=== PATIENT | female | born 1950 | race Caucasian/White ===

== ENCOUNTER 2018-12-02 13:37 | Emergency (ER) | payer MEDICARE, OTHER ==
[~2018-12-02] VITALS: Ht 157.5 cm; Wt 52.3 kg
[~2018-12-02 13:37] MED LIST: ALPR-384 PO; ASPI-611 PO; CALC-965 PO; CETI10TA14 PO; CHOL100046 PO; DIAZ10TA4 PO; DOCU-273 PO; EST1T PO; FENO145T38 PO; HYDR-4383 PO; LEVO50TA8 PO; MULT-1085 PO; NIFE30TA8 PO; OMEP40CA37 PO; RANI150T8 PO
[2018-12-02 14:12] LABS: BASOPHILS % (AUTO) 0.9 % (0-1); EOSINOPHILS # (AUTO) 0.1 X10'3 (0-0.9); EOSINOPHILS % (AUTO) 1.4 % (0-6); HEMATOCRIT 36.3 % (35.0-45.0); HEMOGLOBIN 12.3 g/dl (12.0-16.0); LYMPHOCYTES # (AUTO) 2.1 X10'3 (1.1-4.8); LYMPHOCYTES % (AUTO) 46.3 % (21-51); MEAN CORPUSCULAR HEMOGLOBIN 31.2 PG (27.0-31.0); MEAN CORPUSCULAR HGB CONC 33.8 g/dL (33.0-36.5); MEAN CORPUSCULAR VOLUME 92.1 FL (78-98); MEAN PLATELET VOLUME 10.1 FL (7.4-10.4); MONOCYTES # (AUTO) 0.4 X10'3 (0-0.9); MONOCYTES % (AUTO) 8.3 % (2-12); NEUTROPHILS % (AUTO) 43.1 % (42-75); PLATELET COUNT 203 X10'3 (140-440); RED BLOOD COUNT 3.95 X10'6 (4.20-5.60); RED CELL DISTRIBUTION WIDTH 13.1 % (11.5-14.5); WHITE BLOOD COUNT 4.6 X10'3 (4.5-11.0)
[2018-12-02 14:28] LABS: ALANINE AMINOTRANSFERASE 27 U/L (12-78); ALBUMIN 3.6 G/DL (3.4-5.0); ALBUMIN/GLOBULIN RATIO 1.1 (1.1-1.5); ALKALINE PHOSPHATASE 28 IU/L (46-116); ANION GAP 8 (8-16); ASPARTATE AMINO TRANSFERASE 36 U/L (10-37); BILIRUBIN,TOTAL 0.4 MG/DL (0.1-1.0); BLOOD UREA NITROGEN 12 MG/DL (7-18); BUN/CREATININE RATIO 12.2 (6.6-38.0); CALCIUM 8.3 MG/DL (8.5-10.1); CHLORIDE 104 MMOL/L (99-107); CREATININE 0.98 MG/DL (0.40-0.90); GLUCOSE 96 MG/DL (70-104); PARTIAL THROMBOPLASTIN TIME 25 SECONDS (22-32); POTASSIUM 3.9 MMOL/L (3.5-5.1); SODIUM 136 MMOL/L (135-145); TOTAL PROTEIN 6.9 G/DL (6.4-8.2); eGFR 57 ML/MIN
[2018-12-02] MEDS ORDERED: normal saline 1000ml 1,000 ML IV ONE (14:50)
[2018-12-02] MEDS ORDERED: pantoprazole 40 MG vial IV ONE (16:15)
[2018-12-02] MEDS ORDERED: ondansetron/PF 4mg/2ml inj IV ONE (16:15)
[2018-12-02] MEDS ORDERED: ESOMEPRAZOLE 40 MG VIAL IV ONE (16:20)
[2018-12-02 16:53] VITALS: BP 117/66
[2018-12-02 16:55] LABS: HEMATOCRIT 34.8 % (35.0-45.0); HEMOGLOBIN 11.8 g/dl (12.0-16.0); MEAN CORPUSCULAR HEMOGLOBIN 30.9 PG (27.0-31.0); MEAN CORPUSCULAR HGB CONC 33.8 g/dL (33.0-36.5); MEAN CORPUSCULAR VOLUME 91.4 FL (78-98); MEAN PLATELET VOLUME 9.7 FL (7.4-10.4); PLATELET COUNT 194 X10'3 (140-440); WHITE BLOOD COUNT 5.4 X10'3 (4.5-11.0)
== END 2018-12-02 17:44 | disposition home or self-care (01) ==
LOC: ER 13:38
DX: R55 Syncope and collapse (principal); I10 Essential (primary) hypertension; K21.9 Gastro-esophageal reflux disease without esophagitis; E03.9 Hypothyroidism, unspecified; Z88.6 Allergy status to analgesic agent; Z79.82 Long term (current) use of aspirin
CPT/HCPCS: 36415; 71045; 80053; 84484; 85025; 85027; 85610; 85730; 93005; 96361; 96374; 96375; 99284; J2405; J7030

== ENCOUNTER 2018-12-26 11:30 | Emergency (ER) | payer MEDICARE, OTHER ==
[~2018-12-26] VITALS: Ht 157.5 cm; Wt 54.0 kg
[2018-12-26 12:07] LABS: BASOPHILS % (AUTO) 0.4 % (0-1); EOSINOPHILS % (AUTO) 1.1 % (0-6); HEMOGLOBIN 12.6 g/dl (12.0-16.0); LYMPHOCYTES # (AUTO) 1.3 X10'3 (1.1-4.8); LYMPHOCYTES % (AUTO) 30.2 % (21-51); MEAN CORPUSCULAR HEMOGLOBIN 30.9 PG (27.0-31.0); MEAN CORPUSCULAR HGB CONC 33.1 g/dL (33.0-36.5); MEAN CORPUSCULAR VOLUME 93.5 FL (78-98); MEAN PLATELET VOLUME 9.7 FL (7.4-10.4); MONOCYTES # (AUTO) 0.4 X10'3 (0-0.9); NEUTROPHILS # (AUTO) 2.6 X10'3 (1.8-7.7); NEUTROPHILS % (AUTO) 59.3 % (42-75); PLATELET COUNT 201 X10'3 (140-440); RED BLOOD COUNT 4.06 X10'6 (4.20-5.60); RED CELL DISTRIBUTION WIDTH 13.1 % (11.5-14.5); WHITE BLOOD COUNT 4.3 X10'3 (4.5-11.0)
[2018-12-26 12:21] LABS: ALANINE AMINOTRANSFERASE 25 U/L (12-78); ALBUMIN 3.9 G/DL (3.4-5.0); ALBUMIN/GLOBULIN RATIO 1.1 (1.1-1.5); ALKALINE PHOSPHATASE 32 IU/L (46-116); AMYLASE 75 U/L (25-115); ANION GAP 5 (8-16); ASPARTATE AMINO TRANSFERASE 30 U/L (10-37); BILIRUBIN,TOTAL 0.4 MG/DL (0.1-1.0); BLOOD UREA NITROGEN 12 MG/DL (7-18); BUN/CREATININE RATIO 14.6 (6.6-38.0); CALCIUM 8.9 MG/DL (8.5-10.1); CHLORIDE 105 MMOL/L (99-107); CREATININE 0.82 MG/DL (0.40-0.90); GLUCOSE 122 MG/DL (70-104); LIPASE 167 U/L (73-393); POTASSIUM 3.9 MMOL/L (3.5-5.1); SODIUM 138 MMOL/L (135-145); TOTAL CARBON DIOXIDE 27.7 MMOL/L (24-32); TOTAL PROTEIN 7.4 G/DL (6.4-8.2); eGFR 70 ML/MIN
--- NOTE | 2018-12-26 12:45 | NUR ---
PT ABLE TO TRANSFER SELF WITHOUT ASSIST FROM WHEELCHAIR TO BED, WAITING TO BE EVALUATED BY PROVIDER
[2018-12-26 13:24] VITALS: BP 107/65
== END 2018-12-26 13:28 | disposition home or self-care (01) ==
LOC: ER 11:30
DX: I10 Essential (primary) hypertension (principal); K21.9 Gastro-esophageal reflux disease without esophagitis; E03.9 Hypothyroidism, unspecified; R53.1 Weakness; R53.83 Other fatigue; R42 Dizziness and giddiness; Z88.5 Allergy status to narcotic agent; Z79.82 Long term (current) use of aspirin; Z79.899 Other long term (current) drug therapy; Z88.8 Allergy status to other drugs, medicaments and biological substances
CPT/HCPCS: 36415; 80053; 82150; 83690; 85025; 85610; 93005; 99284

== ENCOUNTER 2023-05-04 11:35 | Day surgery (SDC) | payer MEDICARE, OTHER ==
[2023-05-04] VITALS (8 sets, daily range): BP systolic 127–159; BP diastolic 54–86; PULSE 66–69; RESP 14–18; TEMP 97.9; O2SAT 87–98
[~2023-05-04] VITALS: Ht 180.3 cm; Wt 56.5 kg
[~2023-05-04 11:35] MED LIST changes: +OMEP40CA21 PO; -OMEP40CA37 PO
[2023-05-04] MEDS ORDERED: albumin 25% 100mL bottle x 1 IV PRN (12:00)
[2023-05-04] MEDS ORDERED: FENO145T38 PO (12:03)
[2023-05-04] MEDS ORDERED: POTA-206 PO (12:05)
[2023-05-04] MEDS ORDERED: AMLO5TAB16 PO (12:05)
[2023-05-04] MEDS ORDERED: PROP40TA72 PO (12:07)
[2023-05-04] MEDS ORDERED: VENL75CA61 PO (12:07)
[2023-05-04] MEDS ORDERED: HYDR-3964 PO (12:07)
[2023-05-04] MEDS ORDERED: midazolam 1 mg/ML 2ml injection ONE (12:17)
[2023-05-04] MEDS ORDERED: fentaNYL/PF 50MCG/1 ML 2ML syringe ONE (12:17)
[2023-05-04] MEDS ORDERED: heparin sodium, porcine/PF 100unit/ml 5ML syringe ONE (12:23)
[2023-05-04 12:40] LABS: BASOPHILS % (AUTO) 0.5 % (0-1); EOSINOPHILS % (AUTO) 0.1 % (0-6); HEMATOCRIT 36.8 % (35.0-45.0); HEMOGLOBIN 12.6 g/dl (12.0-16.0); LYMPHOCYTES # (AUTO) 1.5 X10'3 (1.1-4.8); LYMPHOCYTES % (AUTO) 29.5 % (21-51); MEAN CORPUSCULAR HEMOGLOBIN 29.5 PG (27.0-31.0); MEAN CORPUSCULAR HGB CONC 34.2 g/dL (33.0-36.5); MEAN CORPUSCULAR VOLUME 86.3 FL (78-98); MEAN PLATELET VOLUME 7.9 FL (7.4-10.4); MONOCYTES # (AUTO) 0.5 X10'3 (0-0.9); MONOCYTES % (AUTO) 10.4 % (2-12); NEUTROPHILS # (AUTO) 3.1 X10'3 (1.8-7.7); NEUTROPHILS % (AUTO) 59.5 % (42-75); PLATELET COUNT 270 X10'3 (140-440); RED BLOOD COUNT 4.27 X10'6 (4.20-5.60); RED CELL DISTRIBUTION WIDTH 13.1 % (11.5-14.5); WHITE BLOOD COUNT 5.2 X10'3 (4.5-11.0)
[2023-05-04 12:55] LABS: ALBUMIN 3.5 G/DL (3.4-5.0); ANION GAP 8 (8-16); BLOOD UREA NITROGEN 18 MG/DL (7-18); CALCIUM 9.4 MG/DL (8.5-10.1); CHLORIDE 99 MMOL/L (99-107); CREATININE 0.82 MG/DL (0.40-0.90); GLUCOSE 104 MG/DL (70-104); POTASSIUM 4.2 MMOL/L (3.5-5.1); SODIUM 135 MMOL/L (135-145); TOTAL CARBON DIOXIDE 28.2 MMOL/L (24-32); eCRCL 55 ML/MIN; eGFR 69 ML/MIN
--- NOTE | 2023-05-04 14:41 | NUR ---
Report to Luz RN, pt taken to Angio.
[2023-05-04] MEDS ORDERED: LIDOcaine 1% w/EPI 1:100,000 inj. MDV 50 ML VIAL ONE (14:54)
[2023-05-04] MEDS ORDERED: normal saline 1000ml 1,000 ML IV SCH (15:40)
== END 2023-05-04 16:50 | disposition home or self-care (01) ==
LOC: SSTAY O 11:35
PROVIDERS: ATTEND Radiology Vascular & Interventional Radiology
DX: C34.92 Malignant neoplasm of unspecified part of left bronchus or lung (principal); J90 Pleural effusion, not elsewhere classified; F17.210 Nicotine dependence, cigarettes, uncomplicated; Z79.82 Long term (current) use of aspirin; Z79.890 Hormone replacement therapy; Z79.891 Long term (current) use of opiate analgesic; Z79.899 Other long term (current) drug therapy; Z88.5 Allergy status to narcotic agent
CPT/HCPCS: 32555; 36415; 36561; 77001; 80048; 85025; 99152; 99153; C1788; J1642; J2250; J3010; J3490; J7030; 76942; A4620; C1894

== ENCOUNTER 2023-05-11 14:12 | Emergency (ER) | payer MEDICARE, OTHER ==
[~2023-05-11] VITALS: Ht 154.9 cm; Wt 55.9 kg
[~2023-05-11 14:12] MED LIST changes: -ALPR-384 PO; +AMLO5TAB16 PO; -CALC-965 PO; -CETI10TA14 PO; -CHOL100046 PO; -DIAZ10TA4 PO; -EST1T PO; +HYDR-3964 PO; -NIFE30TA8 PO; +POTA-206 PO; +PROP40TA72 PO; -RANI150T8 PO; +VENL75CA61 PO
[2023-05-11 16:36] LABS: MEAN PLATELET VOLUME 8.3 FL (7.4-10.4); RED BLOOD COUNT 4.34 X10'6 (4.20-5.60)
[2023-05-11 16:38] LABS: BASOPHILS % (AUTO) 0.6 % (0-1); EOSINOPHILS % (AUTO) 0.7 % (0-6); HEMATOCRIT 37.8 % (35.0-45.0); HEMOGLOBIN 12.6 g/dl (12.0-16.0); LYMPHOCYTES # (AUTO) 1.3 X10'3 (1.1-4.8); LYMPHOCYTES % (AUTO) 28.2 % (21-51); MEAN CORPUSCULAR HGB CONC 33.4 g/dL (33.0-36.5); MONOCYTES # (AUTO) 0.2 X10'3 (0-0.9); MONOCYTES % (AUTO) 5.1 % (2-12); NEUTROPHILS % (AUTO) 65.4 % (42-75); PLATELET COUNT 261 X10'3 (140-440); RED CELL DISTRIBUTION WIDTH 13.5 % (11.5-14.5); WHITE BLOOD COUNT 4.5 X10'3 (4.5-11.0)
[2023-05-11 16:57] LABS: MAGNESIUM 1.9 MG/DL (1.5-2.4); PRO BRAIN NATRIURETIC PEPTIDE 302 PG/ML (0-125)
[2023-05-11 17:35] VITALS: TEMP 98.4
[2023-05-11 23:00] VITALS: BP 114/53; PULSE 65; RESP 18; O2SAT 97
== END 2023-05-11 23:02 | disposition home or self-care (01) ==
LOC: ER 14:13
DX: J90 Pleural effusion, not elsewhere classified (principal); I10 Essential (primary) hypertension; E03.9 Hypothyroidism, unspecified; Z88.5 Allergy status to narcotic agent; Z79.899 Other long term (current) drug therapy
CPT/HCPCS: 32555; 36415; 71045; 83735; 83880; 84484; 85025; 93005; 99285; A6449

== ENCOUNTER 2023-05-21 05:57 | Day surgery (SDC) | payer MEDICARE, OTHER ==
[~2023-05-21] VITALS: Ht 154.9 cm; Wt 56.0 kg
[2023-05-21 06:15] VITALS: BP 133/77; PULSE 72; RESP 16; TEMP 97.9; O2SAT 96
[2023-05-21] MEDS ORDERED: PANT40TA54 PO (06:32)
[2023-05-21] MEDS ORDERED: ALPR0.5T8 PO (06:32)
[2023-05-21] MEDS ORDERED: FENO145T25 PO (06:32)
[2023-05-21] MEDS ORDERED: FOLI1TAB27 PO (06:32)
[2023-05-21] MEDS ORDERED: LOSA50TA64 PO (06:32)
[2023-05-21] MEDS ORDERED: ONDA-104 PO (06:32)
[2023-05-21] MEDS ORDERED: HYDRALAZINE PO (06:32)
[2023-05-21 08:15] VITALS: BP 166/81; PULSE 73; RESP 16; O2SAT 93
[2023-05-21 08:22] VITALS: BP 151/84; PULSE 72; RESP 16; O2SAT 94
[2023-05-21 08:31] VITALS: BP 151/97; PULSE 74; RESP 16; O2SAT 93
[2023-05-21 08:45] VITALS: BP 154/87; PULSE 75; RESP 16; O2SAT 94
[2023-05-21 08:56] VITALS: BP 155/92; PULSE 71; RESP 14; O2SAT 92
== END 2023-05-21 09:04 | disposition home or self-care (01) ==
LOC: SSTAY O 05:57
PROVIDERS: ATTEND Radiology Vascular & Interventional Radiology
DX: J90 Pleural effusion, not elsewhere classified (principal); I10 Essential (primary) hypertension; K21.9 Gastro-esophageal reflux disease without esophagitis; E03.9 Hypothyroidism, unspecified; Z85.118 Personal history of other malignant neoplasm of bronchus and lung; Z88.5 Allergy status to narcotic agent; Z79.899 Other long term (current) drug therapy; Z79.82 Long term (current) use of aspirin
CPT/HCPCS: 32555; C1729; J7030

== ENCOUNTER 2023-05-29 06:21 | Day surgery (SDC) | payer MEDICARE, OTHER ==
[~2023-05-29] VITALS: Ht 154.9 cm; Wt 58.6 kg
[~2023-05-29 06:21] MED LIST changes: +ALPR0.5T8 PO; +FENO145T25 PO; +FOLI1TAB27 PO; -HYDR-4383 PO; +HYDRALAZINE PO; +LOSA50TA64 PO; -OMEP40CA21 PO; +ONDA-104 PO; +PANT40TA54 PO
[2023-05-29 06:45] VITALS: BP 152/79; PULSE 85; RESP 16; TEMP 98.2; O2SAT 97
[2023-05-29 08:45] VITALS: BP 145/79; PULSE 66; RESP 16; O2SAT 96
[2023-05-29 09:00] VITALS: BP 132/74; PULSE 65; RESP 16; O2SAT 96
== END 2023-05-29 09:02 | disposition home or self-care (01) ==
LOC: SSTAY O 06:21
PROVIDERS: ATTEND Radiology Diagnostic Radiology
DX: J90 Pleural effusion, not elsewhere classified (principal); I10 Essential (primary) hypertension; K21.9 Gastro-esophageal reflux disease without esophagitis; E03.9 Hypothyroidism, unspecified; F32.A Depression, unspecified; F41.9 Anxiety disorder, unspecified; Z85.118 Personal history of other malignant neoplasm of bronchus and lung; Z88.5 Allergy status to narcotic agent; Z90.710 Acquired absence of both cervix and uterus; Z98.890 Other specified postprocedural states; Z90.49 Acquired absence of other specified parts of digestive tract; Z79.899 Other long term (current) drug therapy; Z79.82 Long term (current) use of aspirin
CPT/HCPCS: 32555; C1729

== ENCOUNTER 2023-06-05 08:32 | Day surgery (SDC) | payer MEDICARE, OTHER ==
[~2023-06-05] VITALS: Ht 154.9 cm; Wt 57.8 kg
[2023-06-05] MEDS ORDERED: HYDR4TAB55 (08:52)
[2023-06-05 09:05] VITALS: BP 145/84; PULSE 69; RESP 16; TEMP 98.3; O2SAT 92
[2023-06-05] MEDS ORDERED: albumin 25% 100mL bottle x 1 IV PRN (09:05)
[2023-06-05 10:10] VITALS: BP 146/77; PULSE 76; RESP 16; O2SAT 92
[2023-06-05 10:15] VITALS: BP 144/76; PULSE 66; RESP 16; O2SAT 93
[2023-06-05 10:30] VITALS: BP 142/92; PULSE 78; RESP 14; O2SAT 93
[2023-06-05 10:45] VITALS: BP 159/80; PULSE 71; RESP 16; O2SAT 95
== END 2023-06-05 10:53 | disposition home or self-care (01) ==
LOC: SSTAY O 08:32
PROVIDERS: ATTEND Radiology Vascular & Interventional Radiology
DX: J90 Pleural effusion, not elsewhere classified (principal); I10 Essential (primary) hypertension; K21.9 Gastro-esophageal reflux disease without esophagitis; E03.9 Hypothyroidism, unspecified; Z85.118 Personal history of other malignant neoplasm of bronchus and lung; Z79.899 Other long term (current) drug therapy; Z88.5 Allergy status to narcotic agent
CPT/HCPCS: 32555; C1729

== ENCOUNTER 2023-06-14 06:20 | Day surgery (SDC) | payer MEDICARE, OTHER ==
[~2023-06-14] VITALS: Ht 154.9 cm; Wt 55.6 kg
[~2023-06-14 06:20] MED LIST changes: -HYDR-3964 PO; +HYDR4TAB55
[2023-06-14 06:49] VITALS: BP 160/80; PULSE 74; RESP 16; TEMP 98.4; O2SAT 99
[2023-06-14] MEDS ORDERED: albumin 25% 100mL bottle x 1 IV PRN (06:50)
[2023-06-14 08:00] VITALS: BP 138/84; PULSE 70; RESP 16; O2SAT 98
== END 2023-06-14 08:10 | disposition home or self-care (01) ==
LOC: SSTAY O 06:20
PROVIDERS: ATTEND Radiology Vascular & Interventional Radiology
DX: J90 Pleural effusion, not elsewhere classified (principal); Z53.8 Procedure and treatment not carried out for other reasons; I10 Essential (primary) hypertension; K21.9 Gastro-esophageal reflux disease without esophagitis; E03.9 Hypothyroidism, unspecified; Z85.118 Personal history of other malignant neoplasm of bronchus and lung; Z98.890 Other specified postprocedural states; Z88.5 Allergy status to narcotic agent; Z79.899 Other long term (current) drug therapy; Z79.82 Long term (current) use of aspirin
CPT/HCPCS: 76604

== ENCOUNTER 2023-06-21 06:30 | Day surgery (SDC) | payer MEDICARE, OTHER ==
[~2023-06-21] VITALS: Ht 154.9 cm; Wt 55.5 kg
[2023-06-21 07:25] VITALS: BP 157/79; PULSE 78; RESP 16; TEMP 98.5; O2SAT 96
[2023-06-21 07:30] VITALS: RESP 16; O2SAT 96
== END 2023-06-21 08:45 | disposition home or self-care (01) ==
LOC: SSTAY O 06:30
PROVIDERS: ATTEND Radiology Vascular & Interventional Radiology
DX: J90 Pleural effusion, not elsewhere classified (principal); Z53.8 Procedure and treatment not carried out for other reasons; I10 Essential (primary) hypertension; K21.9 Gastro-esophageal reflux disease without esophagitis; E03.9 Hypothyroidism, unspecified; Z85.118 Personal history of other malignant neoplasm of bronchus and lung; Z98.890 Other specified postprocedural states; Z79.899 Other long term (current) drug therapy
CPT/HCPCS: 76604